=== PATIENT | male | born 1970 | race Two or more races ===

== ENCOUNTER 2024-05-18 09:46 | Emergency (ER) | payer OTHER ==
[~2024-05-18] VITALS: Ht 177.8 cm; Wt 86.2 kg
[2024-05-18] MEDS ORDERED: SERTRALINE HCL50 MG (10:19)
[2024-05-18] MEDS ORDERED: 0.9 % SODIUM CHLORIDE 1,000 ML IV SCH (12:00)
[2024-05-18] MEDS ORDERED: METRONIDAZOLE/SODIUM CHLORIDE 500 MG/100 ML PIGGYBACK IV ONE (12:00)
[2024-05-18] MEDS ORDERED: HYOSCYAMINE SULFATE 0.125 MG TAB.SUBL SL ONE (12:15)
[2024-05-18 12:18] LABS: HEMATOCRIT 40.9 % (39.0-48.0); HEMOGLOBIN 14.1 g/dL (13-16.00); MEAN CELL VOLUME 83.3 fL (80.0-100.00); MEAN CORPUSCULAR HEMOGLOBIN 28.7 pg (27.00-32.0); MEAN CORPUSCULAR HGB CONC 34.4 g/dl (32.0-36.0); PLATELET COUNT 149 K/uL (150-450); RED BLOOD COUNT 4.91 M/uL (4.00-6.00); RED CELL DISTRIBUTION WIDTH 14.7 % (11.5-14.5)
[2024-05-18 12:38] LABS: BILIRUBIN TOTAL 0.76 mg/dL (0.3-1.2); CALCIUM 9.6 mg/dL (8.5-10.1); CREATININE SERUM 1.42 mg/dL (0.70-1.30); GFR 52.15; GLOBULINA 4.3 G/DL (2.4-3.5); POTASSIUM 3.77 mEq/L (3.5-5.1); TOTAL PROTEIN 8.3 gm/dL (6.4-8.2)
[2024-05-18 14:23] LABS: PH,URINE 6.5 (5.0-8.0); URINE APPEARANCE Clear; URINE BILIRRUBIN Negative (NEGATIVE); URINE BLOOD Small; URINE COLOR Yellow; URINE GLUCOSE Negative (NEGATIVE); URINE KETONE 15 (NEGATIVE); URINE LEUKOCYTE Negative; URINE NITRATE Negative; URINE UROBILINOGEN 0.2 E.U./dl
[2024-05-18 14:27] LABS: URINE EPITHELIAL CELLS 4.1 uL (0.0-38.8); URINE RBC 13.4 uL (0.0-20.8); URINE WBC 4.3 uL (0.0-23.2)
[2024-05-18 14:33] LABS: URINE CAST 0.76 uL (0.0-1.40); URINE PROTEIN 100 (NEGATIVE)
[2024-05-18] MEDS ORDERED: DIPHENOXYLATE HCL/ATROPINE 1 UDTAB TABLET PO ONE (16:00)
== END 2024-05-18 15:46 | disposition home or self-care (01) ==
LOC: ER 09:47
PROVIDERS: Emergency Medicine
DX: E86.0 Dehydration (principal); A05.9 Bacterial foodborne intoxication, unspecified; R10.9 Unspecified abdominal pain
CPT/HCPCS: 36415; 96365; 96366; 99282; J3490; J7030